=== PATIENT | female | born 1955 | race Caucasian/White ===

== ENCOUNTER → 2016-05-20 | Outpatient (CLI) | payer BC, OTHER ==
[~2016-05-20] MED LIST: FLEXERIL5 MG PO; LORTAB 5/500 501 TAB PO; MOTRIN 800800 MG/TAB PO; NO HOME MEDICATIONS
== END ==
LOC: COL.RAD 05-15 07:30
DX: I70.0 Atherosclerosis of aorta (principal); I70.8 Atherosclerosis of other arteries

== ENCOUNTER 2016-05-21 14:00 | Outpatient (RCR) | payer OTHER | END 2016-07-29 | disposition home or self-care (01) | LOC: MKS.ESL.PT | DX: M54.89 Other dorsalgia (principal); R10.84 Generalized abdominal pain | CPT/HCPCS: G0283-GP ==

== ENCOUNTER → 2016-10-22 | Outpatient (CLI) | payer BC | LOC: MC.RAD 15:41 | DX: Z12.31 Encounter for screening mammogram for malignant neoplasm of breast (principal) ==

== ENCOUNTER → 2017-11-04 | Outpatient (CLI) | payer BC | LOC: MC.RAD 13:30 | DX: Z12.31 Encounter for screening mammogram for malignant neoplasm of breast (principal) ==

== ENCOUNTER → 2019-10-04 | Outpatient (CLI) | payer MEDICARE, BC | LOC: ZCOL.LAB 16:11 | DX: R09.89 Other specified symptoms and signs involving the circulatory and respiratory systems (principal); R51 Headache; Z20.828 Contact with and (suspected) exposure to other viral communicable diseases ==